=== PATIENT | male | born 1995 | race Caucasian/White ===

== ENCOUNTER 2017-04-30 14:08 | Emergency (ER) | payer MEDICAID ==
[~2017-04-30] VITALS: Ht 172.7 cm; Wt 61.2 kg
--- OUTSIDE RECORDS SUMMARY | 2017-04-30 14:18 | External Medical Summary Rpt | CCD ---
Author Author , KITTY RODRIGUEZ Address Unknown Phone Purpose Continuity of Care Document - 12-20-2014 through 2016 Problems Code Diagnosis DOS Provider Status B36.9 Superficial mycosis, unspecified B97.89 Other viral agents as the cause of diseases classified elsewhere H60.501 Unspecified acute noninfectiv e otitis externa, right ear H62.41 Otitis externa in other diseases classified elsewhere, right ear H92.01 Otalgia, right ear J06.9 Acute upper respiratory infection, unspecified K40.90 Unilateral inguinal hernia, without obstruction or gangrene, not specified as recurrent Z09 Encounter for follow-up examination after completed treatment for conditions other than malignant neoplasm
--- OUTSIDE RECORDS SUMMARY | 2017-04-30 14:18 | External Medical Summary Rpt | CCD ---
Author Author , KITTY RODRIGUEZ Address Unknown Phone [email or web address] Purpose Continuity of Care Document - 12-20-2014 [...]
--- OUTSIDE RECORDS SUMMARY | 2017-04-30 14:19 | External Medical Summary Rpt | CCD ---
Author Author [employer] Organization [employer] Address Unknown Phone Unavailable Purpose Continuity of Care Document - through 2016
--- OUTSIDE RECORDS SUMMARY | 2017-04-30 14:19 | External Medical Summary Rpt | CCD ---
Demographics Preferred Language Mongolian Marital Status Unknown Christian Affiliation Unknown Race Unknown Ethnic Group Unknown Author Author , KITTY RODRIGUEZ Address Unknown Phone Immunization No patient found.
--- OUTSIDE RECORDS SUMMARY | 2017-04-30 14:19 | External Medical Summary Rpt ---
Author Author JENNIFER Shah, [employer] Organization [employer] Address Unknown Phone Unavailable Results Chlamyd/GC TMA Observa Value Referen Units Interpr Notes Date tion ce etation Range Chlamyd Positiv No No Abnorma No Feb 24 ia e informa informa l informa 2016 trachom tion in tion in tion in 12:40 atis source source source PM data data data Neisser Negativ No No No Testing Mar 16 ia e informa informa informa 2016 gonorrh tion in tion in tion in methodo 12:40 oeae source source source logy is PM data data data transcr iption mediate d amplifi cation (TMA) using the Aptima Combo 2 assay from [employer] be.\.br \A negativ e result does not complet salbador rule out a Chlamyd ia trachom atis or Neisser ia gonorrh oeae infecti on due to potenti al inhibit ors or levels present below the limit of detecti on by this assay. Results are depende nt on proper collect ion and transpo rt of specime n. This test is indicat ed for medical purpose s only and should not be used for legal or forensi c purpose s.\.br\ \.br\Th e perform ance charact eristic s of this test were validat ed by [facility] are laborat ory. This assay is FDA cleared to test the followi ng specime ns: clinici an-aakash ected endocer vical, vaginal and male urethra l swab specime ns, patient collect ed vaginal specime ns within a clinic setting , Thin Prep Specime ns in Preserv Cyt Solutio n, and first-s tream, unprese rved male urine specime ns. Testing on female urine is not FDA approve d by this methodo logy, but has been develop ed and validat ed by the [facility] are laborat ory. Detaile d methodo logy is availab le upon request . Lipase Observa Value Referen Units Interpr Notes Date tion ce etation Range Lipase 27 13 - 60 IU/L No New Dec 20 Lvl informa referen 2014 tion in ce 5:55 PM source range data is signifi cantly differe nt from previou s. CMP Observa Value Referen Units Interpr Notes Date tion ce etation Range Sodium 139 136 - mmol/L No Dec 20 145 informa informa 2014 tion in tion in 5:55 PM source source data data Potassi 3.6 3.5 - mmol/L No Dec 20 um 5.0 informa informa 2014 [Moles/ tion in tion in 5:55 PM volume] source source in data data Serum or Plasma Chlorid 100 98 - mmol/L No Dec 20 e 107 informa informa 2014 tion in tion in 5:55 PM source source data data Carbon 26 22 - 29 mmol/L No Dec 20 dioxide informa informa 2014 , total tion in tion in 5:55 PM source source [Moles/ data data volume] in Serum or Plasma Anion 13 7 - 16 mmol/L No Dec 20 Gap informa informa 2014 tion in tion in 5:55 PM source source data data CALCIUM 9.3 8.6 - mg/dL No Dec 20 .TOTAL 10.2 informa informa 2014 tion in tion in 5:55 PM source source data data Glucose 117 74 - mg/dL High No Dec 20 Lvl 100 informa 2014 tion in 5:55 PM source data BUN 19 6 - 20 mg/dL No Dec 20 informa informa 2014 tion in tion in 5:55 PM source source data data Creatin 0.90 0.67 - mg/dL No Dec 20 ine 1.30 informa informa 2014 tion in tion in 5:55 PM source source data data Albumin 4.5 3.5 - gm/dL No Dec 20 5.2 informa informa 2014 [Mass/v tion in tion in 5:55 PM olume] source source in data data Serum or Plasma Protein 7.1 6.4 - gm/dL No Dec 20 8.3 informa informa 2014 [Mass/v tion in tion in 5:55 PM olume] source source in data data Serum or Plasma Bilirub 0.3 0.1 - mg/dL No No Dec 20 in.tota 1.4 informa informa 2015 l tion in tion in 5:55 PM [Mass/v source source olume] data data in Serum or Plasma ASPARTA 14 <=40 IU/L No No Dec 20 TE informa informa 2014 AMINOTR tion in tion in 5:55 PM ANSFERA source source SE data data Alanine 13 <=41 IU/L No No Dec 20 informa informa 2014 aminotr tion in tion in 5:55 PM ansfera source source se data data [Enzyma tic activit y/volum e] in Serum or Plasma Alkalin 57 40 - IU/L No No Dec 20 e 129 informa informa 2014 phospha tion in tion in 5:55 PM tase source source [Enzyma data data tic activit y/volum e] in Serum or Plasma Amylase Observa Value Referen Units Interpr Notes Date tion ce etation Range AMYLASE 66 28 - IU/L No No Dec 20 .TOTAL 100 informa informa 2014 tion in tion in 5:55 PM source source data data Auto Diff Observa Value Referen Units Interpr Notes Date tion ce etation Range Neutrop 46.7 No % No No Dec 20 hils informa informa informa 2014 [#/volu tion in tion in tion in 5:31 PM me] in source source source Blood data data data by Automat ed count Lymphoc 41.3 No % No No Dec 20 ytes informa informa informa 2014 [#/volu tion in tion in tion in 5:31 PM me] in source source source Blood data data data by Automat ed count Monocyt 8.9 No % No No Dec 20 es informa informa informa 2014 [#/volu tion in tion in tion in 5:31 PM me] in source source source Blood data data data by Automat ed count Eos 2.0 No % No No Dec 20 Percent informa informa informa 2014 tion in tion in tion in 5:31 PM source source source data data data Baso 1.1 No % No No Dec 20 Percent informa informa informa 2014 tion in tion in tion in 5:31 PM source source source data data data Neut# 4.3 1.8 - x10(3)/ No No Nov 30 7.7 mcL informa informa 2015 tion in tion in 5:31 PM source source data data Lymph# 3.8 1.0 - x10(3)/ No No Nov 30 4.8 mcL informa informa 2015 tion in tion in 5:31 PM source source data data [place]# 0.8 0.0 - x10(3)/ No No Nov 30 1.3 mcL informa informa 2015 tion in tion in 5:31 PM source source data data Eos# 0.2 0.1 - x10(3)/ No No Nov 30 0.5 mcL informa informa 2015 tion in tion in 5:31 PM source source data data Baso# 0.1 0.0 - x10(3)/ No No Nov 30 0.2 mcL informa informa 2015 tion in tion in 5:31 PM source source data data CBC Observa Value Referen Units Interpr Notes Date tion ce etation Range LEUKOCY 9.3 4.0 - x10(3)/ No No Dec 20 PATT 11.0 [facility] informa informa 2014 tion in tion in 5:31 PM source source data data Erythro 5.18 4.50 - x10(6)/ No No Dec 20 cytes 5.90 mcL informa informa 2014 [#/volu tion in tion in 5:31 PM me] in source source Blood data data by Automat ed count Hemoglo 15.1 13.5 - gm/dL No No Dec 20 bin 17.1 informa informa 2014 [Mass/v tion in tion in 5:31 PM olume] source source in data data Blood Hematoc 45.9 40.0 - % No No Dec 20 rit 50.2 informa informa 2014 [Volume tion in tion in 5:31 PM source source Fractio data data n] of Blood by Automat ed count Erythro 88.7 80.0 - fL No No Dec 20 cyte 95.8 informa informa 2015 mean tion in tion in 5:31 PM corpusc source source ular data data volume [Entiti c volume] by Automat ed count Erythro 29.2 27.0 - pg No No Dec 20 cyte 33.2 informa informa 2015 mean tion in tion in 5:31 PM corpusc source source ular data data hemoglo bin [Entiti c mass] by Automat ed count Erythro 32.9 33.0 - gm/dL Low No Dec 20 cyte 36.0 informa 2014 mean tion in 5:31 PM corpusc source ular data hemoglo bin concent ration [Mass/v olume] by Automat ed count Erythro 12.9 11.5 - % No No Dec 20 cyte 14.5 informa informa 2014 distrib tion in tion in 5:31 PM ution source source width data data [Ratio] by Automat ed count Platele 261 150 - x10(3)/ No No Dec 20 ts 400 mcL informa informa 2014 [#/volu tion in tion in 5:31 PM me] in source source Blood data data by Automat ed count MPV 7.3 7.0 - fL No No Dec 20 12.0 informa informa 2014 tion in tion in 5:31 PM source source data data EK EKG 12 LEAD Observa Value Referen Units Interpr Notes Date tion ce etation Range Station No No No No Dec 20 felicity ECG informa informa informa informa 2015 tion in tion in tion in tion in 5:01 PM Study\. source source source source br\St. data data data data Elizabe th [employer] d\.br\I nterpre tive Stateme nts\.br \SINUS RHYTHM\ .br\IND ETERMIN ATE AXIS\.b r\ATYPI YANE ECG\.br \Electr onicall y Signed On 2014-11 21:40:4 4 EDT by Kalin Mcleod MD
--- OUTSIDE RECORDS SUMMARY | 2017-04-30 14:19 | External Medical Summary Rpt | CCD ---
Demographics Preferred Language Lao Marital Status Unknown Yazidism Affiliation Unknown Race Unknown Ethnic Group Unknown Author Author , KITTY RODRIGUEZ Address Unknown Phone Immunization No patient found.
--- OUTSIDE RECORDS SUMMARY | 2017-04-30 14:19 | External Medical Summary Rpt ---
[...] using the Aptima Combo 2 assay from [employer] be.\.br \A negativ e result does not [...] of this test were validat ed by [facility] are laborat ory. This assay is FDA [...] develop ed and validat ed by the [facility] are laborat ory. Detaile d methodo logy [...] in 5:31 PM source source data data [place]# 0.8 0.0 - x10(3)/ No No Nov [...] x10(3)/ No No Dec 20 PATT 11.0 [facility] informa informa 2014 tion in tion in [...]
[2017-04-30] MEDS ORDERED: FLOXIN 0.3%5 ML/BOT OT (14:51)
--- NOTE | 2017-04-30 14:52 | Urgent Treatment Center Report ---
History of Present Issue Date/Time Seen by Provider 04/30/17 1437 Visit Reason Pt arrived:Walked Presenting Problem:right ear pain x3 days Location if Accident: Onset of symptoms date/time:/ or onset unknown for:MEDICAL HX UNKNOWN Have you (or family members/close friends) recently traveled outside the [place]? N If Yes, where/when: Have you had exposure to infectious disease within the past month? TB? Other? Specify: Patient state that he has been having pain in his right ear for several days State that pain has continued to get worse State that about 2 days ago he had some drainage from the ear but not had any in the last couple of days State that now ear just aches and hurts ALLERGIES Coded Allergies: No Known Allergies (04/30/17) History Medical History Immunization HX DT/Tetanus Unknown Surgical Hx Previous Surgery?N Social History Smoking Hx Smoker: Never Smoker Tobacco: No Alcohol Alcohol: No Review of Systems All Other Systems Reviewed and Negative ENT ear pain. Physical Exam Vital Signs Vital Signs Date Time Temp Pulse Resp B/P Pulse O2 O2 Flow FiO2 Ox Delivery Rate 04/30 1423 98.7 72 16 130/74 99 General Appearance normal appearance, WD/WN, no apparent distress, mild distress Ear, Nose, Throat Right ear canal red, TM cloudy buldging no drainage observed ear tender when manipulated, noticed small round hard area in earlobe will refer to Dermatology for further evaluation of area Respiratory Status Yes: trachea midline, chest symmetrical, non tender chest. No: respiratory distress. Lung Sounds bilateral: normal breath sounds, lungs clear. Cardiovascular normal exam, regular rate/rhythm, no peripheral edema Neurologic alert, normal exam, oriented x 3 Medical Decision Making LABS/Meds/Orders Pt receiving controlled substance in ED? No Departure Departure Time of Disposition 1443 Disposition DC Home or Self Care(routine) Clinical Impression Primary Impression: Otitis externa Qualifiers: Otitis externa type: unspecified type Chronicity: unspecified Laterality: right Qualified Code: H60.91 - Unspecified otitis externa, right ear Condition STABLE Patient Instructions DI for Otitis Externa, Otitis Externa Additional Instructions * Monitor Temp. Tylenol and/or Ibuprofen as needed. ER if fever is no less than 101 despite alternating Tylenol and Ibuprofen * Encourage fluids, water, Gatorade, powerade, pedialyte if /toddler/or child * Warm salt water gargles for throat irritation if you began to have sore throat *Warm fluids *Sleep elevated *humidifier or vaporizer Lots of rest Use drops as prescribed and follow up with family doctor and Dermatology as advised Discharge Counseling Counseled pt/family regarding diagnosis, medications/RX, home care, follow up needs Prescriptions Current Visit Scripts OFLOXACIN (Floxin 0.3% Otic Solution 5ML) 10 DROP OT BID #1 BOT for 10 days at 1826
[2017-04-30 14:53] VITALS: BP 132/70
== END 2017-04-30 14:56 | disposition home or self-care (01) ==
LOC: UTC 14:08
DX: H60.91 Unspecified otitis externa, right ear (principal)